=== PATIENT | female | born 1990 | race Caucasian/White ===

== ENCOUNTER 2023-11-15 16:31 | Emergency (ER) | payer SELFPAY ==
[~2023-11-15] VITALS: Ht 160 cm; Wt 83.9 kg
[2023-11-15] MEDS ORDERED: Tdap Vaccine 0.5 ML SYR (Adult Vaccine) IM ONE (18:30)
[2023-11-15] MEDS ORDERED: SEPTDS PO (18:42)
== END 2023-11-15 19:53 | disposition home or self-care (01) ==
LOC: ED 16:31
DX: L02.416 Cutaneous abscess of left lower limb (principal); Z88.1 Allergy status to other antibiotic agents